=== PATIENT | female | born 1960 | race Caucasian/White ===

== ENCOUNTER 2023-03-29 20:28 | Emergency (ER) | payer OTHER ==
[~2023-03-29] VITALS: Ht 170.2 cm; Wt 62.6 kg
[2023-03-29 21:42] VITALS: BP 124/71; TEMP 98.5; O2SAT 100
--- NOTE | 2023-03-29 21:42 | NUR ---
PT BIBS FOR BUMP/CYST ON RIGHT FOOT (DORSAL) X1 WEEK, S/P URGENT CARE VISIT X1 WEEK WHERE SHE WAS TOLD TO RETURN IF CONDITION WORSENS. HAD PHYSICAL EXAM W/ PCP ON 03/24/23, WAS TOLD TO MONITOR. TODAY, SHE PRESENTS WITH FOOT PAIN 10/10 ON PS. PLACED IN ER 1 FOR MD EVALUATION.
--- NOTE | 2023-03-29 22:20 | NUR ---
Patient discharged to home in stable condition. Written and verbal after care instructions given. Patient verbalizes understanding of instruction.
== END 2023-03-29 22:21 | disposition home or self-care (01) ==
LOC: ER 20:28
DX: M71.371 Other bursal cyst, right ankle and foot (principal)